=== PATIENT | female | born 1985 | race Two or more races ===

== ENCOUNTER 2020-06-18 07:12 | Emergency (ER) | payer SELFPAY ==
[~2020-06-18] VITALS: Ht 157.5 cm; Wt 86.4 kg
[2020-06-18 07:21] VITALS: Ht 157.5 cm; Wt 86.4 kg
[2020-06-18] MEDS ORDERED: PRENAVITE1 TAB PO (07:23)
[2020-06-18 07:39] LABS: BASOPHILS 0.1 % (0-2); EOSINOPHILS 0.6 % (0-7); HEMATOCRIT 39.1 % (36.0-48.0); IMMATURE GRANULOCYTES 0.1 % (0-5); LYMPHOCYTES 11.1 % (15-50); MCH 28.6 pg (26.0-34.0); MCHC 33.2 g/dL (31.0-37.0); MCV 86.1 fL (80.0-100.0); MONOCYTES 3.2 % (2-11); NEUTROPHILS 84.9 % (40-80); PLATELET COUNT 233 10x3/uL (130-400); RBC 4.54 10x6/uL (4.00-5.40); RDW 12.5 % (11.5-14.5); WBC 10.1 10x3/uL (4.8-10.8)
[2020-06-18 07:40] LABS: BILIRUBIN NEGATIVE (NEGATIVE); GLUCOSE NEGATIVE (NEGATIVE); KETONE NEGATIVE (NEGATIVE); NITRITE NEGATIVE (NEGATIVE); UROBILINOGEN NORMAL (NORMAL)
[2020-06-18 07:51] LABS: CALC OSMOLALITY 266 mosm/kg (275-300); CALCIUM 9.4 mg/dL (8.5-10.1); CARBON DIOXIDE 25.9 mmol/L (21.0-32.0); CHLORIDE - SERUM 100 mmol/L (98-107); CREATININE - SERUM 0.7 mg/dL (0.6-1.3); GLUCOSE 108 mg/dL (74-106); POTASSIUM - SERUM 3.8 mmol/L (3.5-5.1); SODIUM 134 mmol/L (136-145); UREA NITROGEN 7 mg/dL (7-18); eGFR NON AFRICAN AMERICAN > 90 mL/min (90-120)
[2020-06-18 08:18] LABS: ALBUMIN 3.4 g/dL (3.4-5.0); ALKALINE PHOSPHATASE 52 U/L (30-120); ALT (SGPT) 21 U/L (10-68); AMYLASE - SERUM 57 U/L (25-115); HCG - QUANTITATIVE (MATERNAL) 49970 mIU/mL; LIPASE 107 U/L (73-393)
[2020-06-18 09:58] VITALS: BP 128/87
== END 2020-06-18 10:02 | disposition home or self-care (01) ==
LOC: D.ER 07:12
PROVIDERS: Family Medicine
DX: R10.2 Pelvic and perineal pain (principal); R10.9 Unspecified abdominal pain